=== PATIENT | male | born 1990 | race Caucasian/White ===

== ENCOUNTER 2020-07-06 07:15 | Emergency (ER) | payer SELFPAY ==
--- NOTE | 2020-07-06 08:20 | ER Document Report ---
ED General - General Chief Complaint: Chest Wall Pain Stated Complaint: COUGH,CONGESTION,SHORT OF BREATH Time Seen by Provider: 07/06/20 08:12 Primary Care Provider: [facility] ([place], [place]) [Provider Group] - Follow up in 1 week - HPI Notes: 30-year-old male to the emergency department with complaints of cough, shortness of breath, right-sided chest and back pain that began 3 to 4 days ago. Denies any fevers or chills. Denies any nausea, vomiting, diarrhea. Does admit to a possible COVID-19 contacts. He states that one of his work colleague of his has tested positive. He states that he does smoke. He states that his fiance has similar symptoms. He states that his chest hurts the most when he tries to take a big deep breath and and with movement. He states that it is causing him to not be able to take a deep breath. The patient was evaluated during the global COVID 19 pandemic, and that diagnosis was suspected/considered upon their initial presentation. Their evaluation, treatment, and testing was consistent with current guidelines for patients who present with complaints or symptoms that may be related to COVID-19. - Related Data Allergies/Adverse Reactions: No Known Allergies Allergy (Verified 07/06/20 07:48) Past Medical History - General Information source: Patient - Social History Smoking Status: Current Every Day Smoker Frequency of alcohol use: None Drug Abuse: None Family History: Reviewed & Not Pertinent Neurological Medical History: Reports: Hx Seizures Review of Systems - Review of Systems Constitutional: denies: Chills, Fever EENT: denies: Ear pain, Throat pain Cardiovascular: Chest pain - Right-sided chest pain worse with big deep breath and movement. denies: Palpitations, Heart racing, Orthopnea, Dyspnea, Syncope, Dizziness, Lightheaded, Edema Respiratory: Cough, Hurts to breathe, Short of breath Gastrointestinal: denies: Abdominal pain, Diarrhea, Nausea, Vomiting Genitourinary: No symptoms reported Musculoskeletal: No symptoms reported Skin: No symptoms reported Hematologic/Lymphatic: No symptoms reported Neurological/Psychological: See HPI, Headaches -: Yes All other systems reviewed and negative Physical Exam - Vital signs Vitals: Temp Pulse Resp BP Pulse Ox 97.7 F 81 16 141/91 H 97 07/06/20 07:54 07/06/20 07:54 07/06/20 07:54 07/06/20 07:54 07/06/20 07:54 Interpretation: Normal - General General appearance: Appears well, Alert In distress: Mild Notes: mild pain distress, not in respiratory distress - HEENT Head: Normocephalic, Atraumatic Eyes: Normal Pupils: PERRL Ears: Normal External canal: Normal Tympanic membrane: Normal. No: Bulging, Hemotympanum, Perforation Sinus: Normal Nasal: Normal Mouth/Lips: Normal Mucous membranes: Normal Pharynx: Normal. No: Erythema, Exudate, Post nasal drainage, Tonsillar hypertrophy, Uvular edema, Potential airway comprom. Neck: Normal, Supple. No: Lymphadenopathy - Respiratory Respiratory status: No respiratory distress Chest status: Tender, Pain on movement, Pain with cough, Pain with deep breathing Breath sounds: Normal, Decreased air movement - Decreased breath sounds throughout. Patient has pain on movement and with deep breathing and cough. He has mild tenderness to palpation over to the right anterior chest wall with no crepitus or step-off Chest palpation: Normal - Cardiovascular Rhythm: Regular Heart sounds: Normal auscultation Murmur: No - Abdominal Inspection: Normal Distension: No distension Bowel sounds: Normal Tenderness: Nontender. No: Tender, McBurney's point, Williamson's sign, Guarding, Rebound Organomegaly: No organomegaly - Back Back: Normal, Nontender - Extremities General upper extremity: Normal inspection, Nontender, Normal color, Normal ROM, Normal temperature General lower extremity: Normal inspection, Nontender, Normal color, Normal ROM, Normal temperature, Normal weight bearing - Neurological Neuro grossly intact: Yes Cognition: Normal Orientation: AAOx4 Jason Coma Scale Eye Opening: Spontaneous Jason Coma Scale Verbal: Oriented [place] Coma Scale Motor: Obeys Commands [place] Coma Scale Total: 15 Speech: Normal Cranial nerves: Normal Cerebellar coordination: Normal Motor strength normal: LUE, RUE, LLE, RLE 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 EKG is reassuring. Chest x-ray with no pneumonia. Patient does have a possible COVID- 19 contacts. He has been swabbed. He has been encouraged to quarantine. Been given a note for work. Will send home with pain medicine and albuterol inhaler as well as cough medicine. Patient is to return if worsening symptoms. Patient agrees with the plan. Patient was provided with discharge information including: As a person under investigation for COVID-19, [facility], division of public health advises you to adhere to the following guidance until your test results are reported to you. If your donny t result is positive, you will receive additional information from your provider and your local health department at that time. Remain at home until you are cleared by the healthcare provider public health authorities. Keep a log of visitors to your home and notify any visitors to your home of your isolation status. If you plan to move to a new address or leave the country, notify the local [facility] department and your County. Call your doctor or seek care if you have an urgent medical need. Before seeking medical care, call ahead to get instructions from the provider before arriving at the medical office, clinic, or hospital. Notify them that you are being tested for the virus that causes COVID-19 so that arrangements can be made, as necessary, to prevent transmission to others in the healthcare setting. Next, notify the local [facility] department and your County. If a medical emergency arises and you need to call 911, informed the first responders that you are being tested for the virus that causes COVID-19. Next, notified the [facility] department and your County. - Vital Signs Vital signs: Temp Pulse Resp BP Pulse Ox 97.7 F 78 18 140/85 H 99 07/06/20 07:54 07/06/20 09:38 07/06/20 09:38 07/06/20 09:38 07/06/20 09:38 - Diagnostic Test Radiology reviewed: Image reviewed, Reports reviewed - EKG Interpretation by Me Additional EKG results interpreted by me: 07/06/20 14:23 Rate 61 Rhythm: Sinus rhythm Interpretation: No STEMI. There is evidence for early repolarization. no comparison available Discharge - Discharge Clinical Impression: Chest wall pain, Exposure to COVID-19 virus, Cough Upper respiratory infection Qualifiers: URI type: unspecified URI Qualified Code(s): J06.9 - Acute upper respiratory infection, unspecified Condition: Stable Disposition: HOME, SELF-CARE Instructions: COVID-19 Guidance for Persons Under Investigation, Upper Respiratory Illness ([facility]) Additional Instructions: Take medicines as prescribed. Return if worsening symptoms. You must quara ntine for the next several days until your COVID-19 swab comes back. Use incentive spirometer every hour to help exercise your lungs. Follow-up with primary care outpatient. As a person under investigation for COVID-19, [facility], division of public health advises you to adhere to the following guidance until your test results are reported to you. If your test result is positive, you will receive additional information from your provider and your local health department at that time. Remain at home until you are cleared by the healthcare provider public health authorities. Keep a log of visitors to your home and notify any visitors to your home of your isolation status. If you plan to move to a new address or leave the country, notify the local health department and your County. Call your doctor or seek care if you have an urgent medical need. Before seeking medical care, call ahead to get instructions from the provider before ar riving at the medical office, clinic, or hospital. Notify them that you are being tested for the virus that causes COVID-19 so that arrangements can be made, as necessary, to prevent transmission to others in the healthcare setting. Next, notify the local health department and your County. If a medical emergency arises and you need to call 911, informed the first responders that you are being tested for the virus that causes COVID-19. Next, notified the local health department and your County. Prescriptions: Albuterol Sulfate [Proair HFA Inhalation Aerosol 8.5 gm MDI] 2 puff IH Q4H PRN #1 mdi PRN Reason: Guaifen/Dextromethorphan/PE [Tussin Cf Cough-Cold Syrup] 5 ml PO QID #118 ml Diclofenac Sodium [Voltaren 25 Mg Tablet] 25 mg PO BID #10 tablet.dr Forms: Return to Work Referrals: [facility] ([place], [place]) [Provider Group] - Follow up in 1 week
[2020-07-06] MEDS ORDERED: DEXAMETHASONE SOD PHOS INJ 10 MG/1 ML VIAL IM ONE (08:44)
[2020-07-06] MEDS ORDERED: KETOROLAC TROMETHAMINE 60 MG/2 ML SDV IM ONE (08:44)
[2020-07-06] MEDS ORDERED: ALBUTEROL SULFATE 0.083% NEB 2.5 MG/3 ML AMPUL NEB ONE (08:45)
--- NOTE | 2020-07-06 08:45 | RADIOLOGY REPORT (SQ) ---
EXAM DESCRIPTION: CHEST SINGLE VIEW IMAGES COMPLETED DATE/TIME: 07/06/2020 8:19 am REASON FOR STUDY: cough COMPARISON: None. NUMBER OF VIEWS: One view. TECHNIQUE: Single frontal radiographic view of the chest acquired. LIMITATIONS: None. FINDINGS: LUNGS AND PLEURA: No opacities, masses or pneumothorax. No pleural effusion. MEDIASTINUM AND HILAR STRUCTURES: No masses. Contour normal. HEART AND VASCULAR STRUCTURES: Heart normal in size. Normal vasculature. BONES: No acute findings. HARDWARE: None in the chest. OTHER: No other significant finding. IMPRESSION: NO SIGNIFICANT RADIOGRAPHIC FINDING IN THE CHEST. TECHNICAL DOCUMENTATION: JOB ID: [id number] [email or web address]- All Rights Reserved Reading location - IP/workstation name: [email or web address]
[2020-07-06 09:40] VITALS: BP 140/85
--- NOTE | 2020-07-06 12:53 | EKG REPORT ---
SEVERITY:- ABNORMAL ECG - SINUS RHYTHM PROBABLE LEFT ATRIAL ABNORMALITY PROBABLE LEFT VENTRICULAR HYPERTROPHY NONSPECIFIC T ABNORMALITIES, INFERIOR LEADS ST ELEV, PROBABLE NORMAL EARLY REPOL PATTERN : Confirmed by: Jasiel Ochoa MD 06-Jul-2020 12:53:05
== END 2020-07-06 09:43 | disposition home or self-care (01) ==
LOC: ER 07:15
DX: J06.9 Acute upper respiratory infection, unspecified (principal); R07.9 Chest pain, unspecified; F17.200 Nicotine dependence, unspecified, uncomplicated; Z20.828 Contact with and (suspected) exposure to other viral communicable diseases
CPT/HCPCS: 93005; 94640; 99285; 96372; 87635; 71045; 93010; J1885; J1100; J7613; C9803